=== PATIENT | female | born 1990 | race Caucasian/White ===

== ENCOUNTER 2023-07-24 16:14 | Outpatient (CLI) | payer BC, SELFPAY ==
[2023-07-24 16:54] LABS: Alanine Aminotransferase 25 U/L (6-35); Aspartate Amino Transferase 28 U/L (14-36)
== END 2023-07-24 16:15 | disposition home or self-care (01) ==
LOC: ANHLAB 16:16
PROVIDERS: PCP Emergency Medicine; Visit Provider Podiatrist Foot & Ankle Surgery
DX: B35.1 Tinea unguium (principal)
CPT/HCPCS: 36415; 84450; 84460